=== PATIENT | male | born 1975 | race American Indian/Alaskan Native ===

== ENCOUNTER 2020-12-16 09:32 | Outpatient (CLI) | payer OTHER ==
--- NOTE | 2020-12-16 14:02 | Nuclear Medicine Report ---
Nuclear medicine parathyroid scan INDICATION: Elevated calcium levels concerning for parathyroid adenoma. TECHNIQUE: A total of 20 mCi of technetium 99 sestamibi injected IV per protocol. Multiple planar roger ges obtained FINDINGS: Early images demonstrates prominent uptake within the salivary glands and thyroid. 3 hour w ashout demonstrates no significant residual activity within the upper mediastinum or neck. IMPRESSION: No convincing evidence of parathyroid adenoma appreciated. Signer Name: Spike Carlson MD Signed: 12/16/2020 1:57 PM Workstation Name: [id number]
== END 2020-12-16 09:33 | disposition home or self-care (01) ==
LOC: NM 09:32
PROVIDERS: ATTEND Psychiatry & Neurology Psychiatry
DX: D35.1 Benign neoplasm of parathyroid gland (principal)
CPT/HCPCS: 78070; A9500